=== PATIENT | male | born 1985 | race Two or more races ===

== ENCOUNTER 2019-08-06 19:58 | Emergency (ER) | payer SELFPAY ==
[~2019-08-06] VITALS: Ht 167.6 cm; Wt 75.0 kg
[2019-08-06 20:04] VITALS: BP 116/85; Ht 167.6 cm; Wt 75.0 kg
== END 2019-08-06 20:53 | disposition home or self-care (01) ==
LOC: D.ER 19:58
DX: Z71.1 Person with feared health complaint in whom no diagnosis is made (principal)